=== PATIENT | female | born 1995 | race Two or more races ===

== ENCOUNTER 2024-02-10 08:57 | Observation (INO) | payer OTHER ==
--- NOTE | 2024-02-10 09:45 | DVH ---
Procedure: US BIOPHYSICAL PROFILE 02/10/2024 09:25 AM Indication: Term Comparison: None Technique: Sonogram of gravid uterus utilizing grayscale and color techniques. FINDINGS: Single living intrauterine gestation. Presentation: Cephalic Placenta: Anterior, no evidence of previa or abruption heart rate: 152 bpm NELSON: 18.7 cm, DVP: 7.3 cm Maternal cervix: Not visualized Biophysical Profile: breathing score: 2 movement score: 2 tone: 2 Quantitative NELSON score: 2 Total score: 8/8 IMPRESSION: 1. Single living as above. 2. Biophysical profile score: 8/8.
--- NOTE | 2024-02-10 10:30 | DVHDS2 ---
Physician Discharge Progress N Final Diagnosis: testing for term Operations or Procedures: Operations or Procedures 28yo IUP@40.0wks VSS UA wnl NST reactive (reviewed by 2 RNs) BPP wnl FKC/labor precautions reviewed Condition on Discharge: Stable Disposition: Home Discharge Instructions: Diet: Regular Activity: No Restrictions, As Tolerated Medications: PNV Follow Up Care: Specialist: f/u in 2 days Discharge Statement: "Patient was advised to return to the ER or call 911 if any headaches, dizziness, shortness of breath, chest pain, abdominal pain, bleeding, fevers, or worsening of medical condition. Patient was counseled about treatment plan, medications, possible side effects, patientverbalized understanding. All questions were answered to the best of my ability. This discharge took greater then 30 minutes in planning, reviewing documentation, counseling the patient, and discussing with other team members." MANUELA ZEE CNM Feb 10, 2024 10:30
== END 2024-02-10 10:23 | disposition home or self-care (01) ==
LOC: LDRP 08:57 → UNDOADMOB 08:57 → LDRP 09:11 → UNDODISOB 10:23
PROVIDERS: ADMIT Obstetrics & Gynecology; ATTEND Obstetrics & Gynecology
DX: O36.8330 Maternal care for abnormalities of the fetal heart rate or rhythm, third trimester, not applicable or unspecified (principal); Z3A.40 40 weeks gestation of pregnancy; Z79.899 Other long term (current) drug therapy; Z98.890 Other specified postprocedural states
CPT/HCPCS: 59025; 76818; 81002; 94760; G0378

== ENCOUNTER 2024-02-12 09:58 | Observation (INO) | payer OTHER ==
[~2024-02-12] VITALS: Ht 157.5 cm; Wt 66.7 kg
--- NOTE | 2024-02-12 11:16 | DVH ---
BIOPHYSICAL PROFILE HISTORY: Post Dates TECHNIQUE: Multiple transabdominal real-time grayscale sonographic images through the gravid uterus of the fetus with duplex Doppler color flow and M-mode spectral analysis FINDINGS: BIOPHYSICAL PROFILE: breathing score: 2 movement score: 2 tone score: 2 Quantitative NELSON score: 2 (NELSON: 17.7 Cm. MVP 7.5 cm ) Total score: 8/8 Single live fetus in cephalic presentation. heart rate 144 beats per minute. Anterior placenta without previa or abruption IMPRESSION: 1. Biophysical profile score: 8/8 HS:Y
== END 2024-02-12 11:32 | disposition home or self-care (01) ==
LOC: LDRP 09:58 → UNDOADMOB 09:58 → LDRP 10:03
PROVIDERS: ADMIT Obstetrics & Gynecology; ATTEND Obstetrics & Gynecology
DX: O48.0 Post-term pregnancy (principal); Z3A.40 40 weeks gestation of pregnancy; Z79.899 Other long term (current) drug therapy
CPT/HCPCS: 59025; 76818; 81002; 94760; G0378

== ENCOUNTER 2024-02-13 06:30 | Inpatient (IN) | payer OTHER ==
[2024-02-12 11:51] LABS: Basophils # (auto) 0 10 ^3/uL (0-0.2); Basophils % (auto) 0.5 % (0.0-2.0); Eosinophils # (auto) 0 10 ^3/uL (0-0.8); Eosinophils % (auto) 0.5 % (0.0-7.0); Hematocrit 37.6 % (36.0-46.0); Hemoglobin 12.4 g/dL (12.2-16.2); Lymphocytes # (auto) 1.4 10 ^3/uL (0.4-5.4); Mean Corpuscular Hemoglobin 27.2 pg (28.0-32.0); Mean Corpuscular Volume 82.5 fL (80.0-100.0); Monocytes # (auto) 0.7 10 ^3/uL (0-1.3); Monocytes % (auto) 8.4 % (0.0-12.0); Neutrophils # (auto) 5.7 10 ^3/uL (1.6-8.6); Neutrophils % (auto) 72.6 % (37.0-80.0); Platelet Count (auto) 166 10^3/uL (140-450); Red Blood Cells 4.55 10^6/uL (4.0-5.20); Red Cell Distribution Width 14.5 % (11.8-14.3); White Blood Cell 7.9 10^3/uL (4.4-10.8)
[2024-02-12 12:05] LABS: Alanine Aminotransferase 22 U/L (7-40); Albumin 3.7 g/dL (3.2-4.8); Alkaline Phosphatase 193 U/L (46-116); Anion Gap 7 (5-15); Aspartate Aminotransferase 25 U/L (13-40); BUN/Creatinine Ratio 12.9 (10.0-20.0); Blood Urea Nitrogen 9 mg/dL (9-23); Calcium 9.8 mg/dL (8.7-10.4); Carbon Dioxide 24 mmol/L (20-31); Chloride 106 mmol/L (98-107); Glucose 57 mg/dL (74-106); Sodium 137 mmol/L (136-145)
[2024-02-12 12:06] LABS: Bilirubin, Total 0.6 mg/dL (0.2-1.0); INR 0.93 (0.9-1.15); Partial Thromboplastin Time 27.1 SEC (24.5-34.5); Prothrombin Time 9.9 sec (9.3-11.8); Total Protein 6.1 g/dL (5.7-8.2)
[2024-02-12 12:08] LABS: Hepatitis B Surface Antibody Negative (Negative)
[2024-02-12 12:42] LABS: Hepatitis C Antibody Negative (Negative)
[~2024-02-13] VITALS: Ht 157.5 cm; Wt 66.7 kg
[2024-02-13] VITALS (15 sets, daily range): BP systolic 91–120; BP diastolic 55–68; PULSE 54–76; RESP 14–20; TEMP 97.4–98.2; O2SAT 95–100
[2024-02-13 07:00] LABS: Urine Bacteria None Seen /hpf (None Seen)
[2024-02-13 07:06] LABS: RPR Non Reactive (Non Reactive)
[2024-02-13 07:15] LABS: Urine Blood Negative /uL (Negative); Urine Clarity Clear (Clear); Urine Color Light-Yellow (Yellow); Urine Protein, UAD Negative (Negative); Urine Specific Gravity 1.015 (1.001-1.035); Urine Urobilinogen Normal (Negative); Urine WBC 1 /hpf (0 - 5); Urine pH 6.5 (5.0-9.0)
[2024-02-13 07:25] LABS: Amphetamine Screen, Urine Neg (NEGATIVE); Benzodiazephine Screen, Urine Neg (NEGATIVE)
[2024-02-13 07:26] LABS: Barbiturate Scree,Urine Neg (NEGATIVE); Cannabinoid Screen, Urine Neg (NEGATIVE); Cocaine Screen, Urine Neg (NEGATIVE); Opiate Scree,Urine Neg (NEGATIVE); Phencyclidine Screen, Urine Neg (NEGATIVE)
--- NOTE | 2024-02-13 07:34 | DVHHP2 ---
OB CC & HPI Date Date of Admission: Feb 13, 2024 Patient Identification: : 1 Para: 0 EDC: Feb 10, 2024 EGA: 40.3 Chief Complaints: Reason for admission: section History of Present Complaints 28y G1Po Term IUP scheduled for 1' C/Section due to CPD (cephalopelvic disproportion) Patient has a narrow pelvis and declined trial of labor/ induction. Clinical EFW approximately 8 pounds. course has been uncomplicated. Past Medical History Cardiac: No pertinent Hx Pulmonary: No pertinent Hx Central Nervous System: No pertinent Hx GI: No pertinent Hx Hemotology/Oncology: No pertinent Hx Hepatobiliary: No pertinent Hx Psychiatric: No pertinent Hx Musculoskeletal: No pertinent Hx Rheumotologic: No pertinent Hx Infectious Disease: No peritnent Hx ENT: No pertinent Hx Renal/: No pertinent Hx Endocrine: No pertinent Hx Dermatology: No pertinent Hx Past Surgical History: No pertinent Hx OB History OB History Care: Good Care Ultrasounds: Normal mid trimester US Obstetrical Complications: None Allergies: Coded Allergies: NO KNOWN ALLERGIES (Unverified , 02/12/24) Home Meds No Active Prescriptions or Reported Meds Family & Social History Family/Social History Rubella: immune RPR/VDRL: Negative GBS Status: Negative HBsAG: Negative Review of Systems Constitutional: No symptom reported Ears, Nose, & Throat: No symptom reported Eyes: No symptom reported Pulmonary/Respiratory: No symptom reported Cardiovascular: No symptom reported Gastrointestinal: No symptom reported Genitourinary: No symptom reported Musculoskeletal: No symptom reported Skin: No symptom reported Psychiatric: No symptom reported Endocrine: No symptom reported Hemotologic/Lymphatic: No symptom reported OB Admission Exam Physical Exam HEENT: NCAT Heart: Rhythm Normal Lungs: Clear Abdomen: Non tender Extremities: Normal Reflexes: Normal Cervical Dilatation: None Effacement: 0% Station: Ballotable Membranes: Intact Heart Rate: 130's Accelerations: Accelerations Present Decelerations: No Decelerations Short Term Variability: Present [facility] Variability: Average (6-25) Contractions on Admission: None OB Plan Plan Admitting Diagnosis: Term IUP 40.3 weeks, Cephalopelvic disproportion (CPD) PRIMARY Plan: Section Other Plan: R/B/A and informed consent obtained for 1' C/Section All questions answered STACI MONDRAGON DO Feb 13, 2024 07:34
[2024-02-13] MEDS: LACTATED RINGER'S 1,000 ML IV ONE (07:59)
[2024-02-13] MEDS: LACTATED RINGER'S 1,000 ML IV SCH (07:59)
[2024-02-13] MEDS ORDERED: ePHEDrine SULFATE 50 MG/ML AMP IV PRN (08:45)
[2024-02-13] MEDS ORDERED: HYDROmorphone HCL 2 MG/ML VL/or syr IV PRN (08:45)
[2024-02-13] MEDS ORDERED: MORPHINE SULF PF 5 MG/10 ML VIAL ONE (08:48)
[2024-02-13] MEDS ORDERED: fentaNYL CITRATE 100 MCG/2 ML VL ONE (08:48)
[2024-02-13] MEDS ORDERED: ROCURONIUM 10MG/ML 10ML VIAL IV ONE (08:55)
[2024-02-13] MEDS: ceFAZolin 2 GM/D5W50ml 50 ML IV ONE (09:11)
[2024-02-13] MEDS ORDERED: ONDANSETRON HCL 4 MG/2 ML VIAL ONE (09:36)
[2024-02-13] MEDS ORDERED: GLYCOPYRROLATE 0.2 MG/ML 1ML VIAL ONE (10:31)
--- NOTE | 2024-02-13 10:47 | DVHOP ---
DATE OF SURGERY: 02/13/2024 PREOPERATIVE DIAGNOSES: * Term intrauterine 40 weeks and 3 days. * Cephalopelvic disproportion. FINAL DIAGNOSES: * Term intrauterine 40 weeks and 3 days. * Cephalopelvic disproportion. * Face presentation. PROCEDURE PERFORMED: Primary low transverse section via Pfannenstiel skin incision. SURGEON: Trenton Mckoy DO SYSTEM SUPPORT DEVELOPER: electrophysiology technician. TYPE OF ANESTHESIA: Spinal. ANESTHESIOLOGIST: Ronnie Amado MD DESCRIPTION OF FINDINGS: Delivery of a liveborn male , face presentation mentum anterior. Fetus with scores of 8 and 9. Fetus with apparent micrognathia and elongated oval shape head. Clear amniotic fluid. Normal uterus. Normal bilateral fallopian tubes, ovaries, and placenta. TECHNICAL PROCEDURE: After informed consent was obtained, the patient was taken to the operating room where her spinal anesthesia was found to be adequate. She was placed in the supine position with a slight leftward tilt. She was sterilely prepped and draped in the usual sterile fashion. A Pfannenstiel skin incision was made with the scalpel. The incision was carried down sharply to the underlying layer of fascia and peritoneum. The peritoneal incision was extended superiorly and inferiorly with good visualization of the bladder. The Adam O retractor was placed into the incision. The lower uterine segment was incised with a second scalpel in a low transverse fashion. The incision stretched laterally using digital technique. The amniotic fluid membranes were ruptured. The fluid was clear. The baby was then delivered atraumatically. After delivery of the , the nose and mouth were suctioned. The cord was clamped and cut after 60 seconds. The baby was then handed off to waiting pediatric team. Cord blood was obtained. The placenta was spontaneously delivered. The uterus was exteriorized and cleared of all clots and debris using moist laparotomy sponges. The uterine incision was repaired with #1 Stratafix suture in continuous running fashion. Good hemostasis was obtained. Next, the abdomen and pericolic gutters were cleared of all clots and debris. The abdomen was irrigated with sterile water. Hemostasis was confirmed. The instruments were removed from the patient's abdomen. I then proceeded to close the rectus fascia using #1 Stratafix in continuous running fashion with good tissue approximation. The subcutaneous tissue was closed with 2-0 plain gut in continuous running fashion and the skin closed with a 2-0 Monocryl in subcuticular fashion. The Perineo skin dressing was then placed over the incision followed by a sterile gauze dressing. The patient tolerated the procedure well. COUNTS: Sponge, lap, and needle counts were correct x4. INTRAOPERATIVE COMPLICATIONS: None. ESTIMATED BLOOD LOSS: 600 mL. POSTOPERATIVE CONDITION: Stable. SPECIMENS: Cord blood and placenta. MEDICATIONS: The patient received 2 grams of Ancef prior to skin incision. DO ALIYAH Griggs TID: [id number] RECEIPT: [id number] MTDD
[2024-02-13] MEDS: ceFAZolin 1GM/50ML 50 ML IV SCH (17:26)
[2024-02-13] MEDS: ONDANSETRON HCL 4 MG/2 ML VIAL IV ONE (21:31)
[2024-02-14] VITALS (12 sets, daily range): BP systolic 92–106; BP diastolic 52–77; PULSE 56–82; RESP 16–18; TEMP 97.5–98.4; O2SAT 96–100
[2024-02-14] MEDS: ACETAMINOPHEN IV 1000 MG/100ML (10MG/ML) IV PRN (00:15)
[2024-02-14] MEDS: KETOROLAC TROMETH 30 MG/ML 1ML VIAL IV PRN (05:02)
[2024-02-14 06:15] LABS: Basophils # (auto) 0 10 ^3/uL (0-0.2); Basophils % (auto) 0.1 % (0.0-2.0); Eosinophils # (auto) 0 10 ^3/uL (0-0.8); Eosinophils % (auto) 0.1 % (0.0-7.0); Hematocrit 31.2 % (36.0-46.0); Hemoglobin 10.3 g/dL (12.2-16.2); Lymphocytes # (auto) 1.7 10 ^3/uL (0.4-5.4); Lymphocytes % (auto) 12.1 % (10.0-50.0); Mean Corpuscular Hemoglobin 27.3 pg (28.0-32.0); Mean Corpuscular Hgb Conc. 33.2 g/dL (32.0-36.0); Mean Corpuscular Volume 82.3 fL (80.0-100.0); Monocytes # (auto) 1.1 10 ^3/uL (0-1.3); Monocytes % (auto) 7.6 % (0.0-12.0); Neutrophils # (auto) 11.4 10 ^3/uL (1.6-8.6); Neutrophils % (auto) 80.1 % (37.0-80.0); Platelet Count (auto) 159 10^3/uL (140-450); Red Blood Cells 3.79 10^6/uL (4.0-5.20); Red Cell Distribution Width 14.8 % (11.8-14.3); White Blood Cell 14.2 10^3/uL (4.4-10.8)
--- NOTE | 2024-02-14 07:00 | DVHPN2 ---
Progress Note Date Seen: Feb 14, 2024 Subjective POD#1 s/p 1' C/S for CPD Doing well. Pain controlled. Lochia mild vital signs Vital Sign Date Time Temp Pulse Resp B/P (MAP) Pulse Ox O2 Delivery O2 Flow Rate FiO2 02/14/24 05:00 63 16 94/58 (70) 97 02/14/24 03:00 98.4 98.4 02/13/24 19:00 Room Air 02/13/24 10:55 0.0 02/13/24 10:33 100 Total Intake and Output 02/13/24 02/13/24 02/14/24 15:00 23:00 07:00 Intake Total 450 ml 750 ml Output Total 2400 ml 1200 ml Balance -1950 ml -450 ml medications Current Medications Medications Dose Ordered Sig/Vernon Route Start Time Stop Time Status Last Admin Dose Admin Lactated Ringer's 1,000 ml @ 125 mls/hr Q8H IV 02/13/24 07:30 02/13/24 07:59 125 MLS/HR Cefazolin Sodium 50 ml @ 100 mls/hr Q8H IV 02/13/24 17:30 02/14/24 09:59 02/14/24 01:18 100 MLS/HR Ketorolac Tromethamine 30 mg Q6HPRN PRN IV 02/13/24 11:30 02/18/24 11:29 02/14/24 05:02 30 MG laboratory and microbiology Laboratory Tests 02/14/24 05:45 02/12/24 10:25 Test 02/12/24 10:25 Range/Units Serum Glucose 57 L 74-106 mg/dL Objective O: AFVSS Chest: heart and lung sounds normal. Abd soft, non-tender, fundus firm, BS, no rebound or guarding, Incision - dressing and incision clean, dry, intact Ext Neg Homans, Non-tender, edema Lochia - minimal Labs Reviewed Assessment/Plan 28y s/p 1' C/S doing well Precipitous drop in H/H, related to acute blood loss anemia (surgery) (stable) Plan: Continue current care, pain control Advance orders, regular diet Ambulate Plan discussed with: Patient JOSE RAFAELSTACI TAY Feb 14, 2024 07:00
[2024-02-14] MEDS ORDERED: IBUP-1456 PO (07:02)
[2024-02-14] MEDS ORDERED: HYDR-4902 PO (07:02)
[2024-02-14] MEDS: IBUPROFEN 800 MG TAB PO PRN (08:09)
[2024-02-14] MEDS: DOCUSATE CALCIUM 240 MG CAP PO SCH (10:01)
[2024-02-14] MEDS: DOCUSATE SOD 100 MG CAP PO SCH (10:02)
[2024-02-14] MEDS: SIMETHICONE 80 MG CHEWABLE TABLET PO SCH (12:09)
[2024-02-14] MEDS: HYDROcodone-ACET 5/325MG TAB PO PRN (12:18)
[2024-02-15] MEDS: BISACODYL 10 MG RECT SUPP PR PRN (01:01)
[2024-02-15 02:50] VITALS: BP 108/71; PULSE 62; RESP 18; TEMP 97.8; O2SAT 100
[2024-02-15 07:00] VITALS: BP 111/70; PULSE 95; RESP 16; TEMP 97.7; O2SAT 97
--- NOTE | 2024-02-15 09:20 | DVHPN2 ---
Chief Complaints Patient reports: No new complaints, Feels better Nursing reports: No new complaints, No chest pain, No dizziness, No cough (Patient ) Objective Vitals Vital Signs Date Time Temp Pulse Resp B/P (MAP) Pulse Ox O2 Delivery O2 Flow Rate FiO2 02/15/24 07:00 Room Air 0.0 02/15/24 07:00 97.7 95 16 111/70 (84) 97 97.7 02/13/24 10:33 100 Medications Current Medications Medications (Trade) Dose Ordered Sig/Vernon Route PRN Reason Start Time Stop Time Status Last Admin Dimethicone (Mylicon Tab) 80 mg QID PO 02/14/24 12:00 02/15/24 05:48 Docusate Calcium (Surfak Capsule) 240 mg DAILY PO 02/14/24 10:00 02/14/24 10:01 Docusate Sodium (Colace Capsule) 100 mg Q12HR PO 02/14/24 10:00 02/14/24 22:24 General: Normal Lungs: Normal Cardiovascular: Normal Abdominal: Normal Musculoskeletal: Normal Extremities: Normal Skin: Normal Neurological: Normal Studies Laboratory Tests 02/14/24 05:45 02/12/24 10:25 Test 02/12/24 10:25 Range/Units Serum Glucose 57 L 74-106 mg/dL Ass/Plan Assessment Post section stable for discharge home Plan See DC summary See DC orders JERRY DAMON DO Feb 15, 2024 09:20
--- NOTE | 2024-02-15 09:24 | DVHDS2 ---
Obstetrics Discharge Summary Obstetrics Discharge Summary Date of Admission: Feb 13, 2024 Date of Discharge: Feb 16, 2024 Reason For Admission: Section (Primary) Procedures: NST Intrapartum Procedures: (Low Cervical Transverse) Procedures: None Operative Complicat: None Discharge Diagnosis: Term -Delivered Discharge Information: Activity (pelvic ), Diet (Routine), Medications (DC Rx sent to pharmacy), Instructions (Routine), Discharge to (Home), Discarge date (02/16/2024) JERRY DAMON DO Feb 15, 2024 09:24
[2024-02-15 11:00] VITALS: BP 118/72; PULSE 90; RESP 20; TEMP 97.4; O2SAT 97
[2024-02-15 18:00] VITALS: BP 111/69; PULSE 83; RESP 18; TEMP 97.6; O2SAT 97
[2024-02-15 19:00] VITALS: BP 111/69; PULSE 83; RESP 18; TEMP 97.6; O2SAT 97
[2024-02-15 23:00] VITALS: BP 98/70; PULSE 61; RESP 18; TEMP 97.4
[2024-02-16 03:00] VITALS: BP 97/67; PULSE 86; RESP 16; TEMP 97.9; O2SAT 97
--- NOTE | 2024-02-16 05:33 | DVHPN2 ---
Chief Complaints Patient reports: No new complaints, Feels better Nursing reports: No new complaints, No chest pain, No dizziness, No cough (Patient ) Objective Vitals Vital Signs Date Time Temp Pulse Resp B/P (MAP) Pulse Ox O2 Delivery O2 Flow Rate FiO2 02/16/24 03:00 97.9 86 16 97/67 (77) 97 97.9 02/15/24 19:00 Room Air 02/15/24 07:00 0.0 General: Normal Lungs: Normal Cardiovascular: Normal Abdominal: Normal Musculoskeletal: Normal Extremities: Normal Skin: Normal Neurological: Normal Studies Laboratory Tests 02/14/24 05:45 02/12/24 10:25 Test 02/12/24 10:25 Range/Units Serum Glucose 57 L 74-106 mg/dL Ass/Plan Assessment Post section stable for discharge home Plan JERRY Landers DC, DC DO Feb 16, 2024 05:33
[2024-02-16 07:00] VITALS: BP 115/69; PULSE 96; RESP 20; TEMP 97.4; O2SAT 97
[2024-02-16 11:00] VITALS: BP 111/73; PULSE 103; RESP 20; TEMP 97.8; O2SAT 99
[2024-02-16 11:07] LABS: Treponema Pallidum Ab LC Non Reactive (Non Reactive)
[2024-02-16] MEDS: HYDROcodone-ACET 5/325MG TAB PO PRN (11:44)
[2024-02-16] MEDS: MEASLES, MUMPS & RUBELLA VAC(MMRII) 0.5ML SC ONE (11:48)
[2024-02-16 12:30] VITALS: BP 111/73; PULSE 103; RESP 20; TEMP 97.8; O2SAT 99
== END 2024-02-16 12:30 | disposition home or self-care (01) | DRG 787 ==
LOC: LDRP 06:30
PROVIDERS: ADMIT Obstetrics & Gynecology; ATTEND Obstetrics & Gynecology
PROC: 10D00Z1 Extraction of Products of Conception, Low, Open Approach (ICD-10-PCS; principal; 2024-02-13 09:19)
DX: O48.0 Post-term pregnancy (principal); D62 Acute posthemorrhagic anemia; O33.9 Maternal care for disproportion, unspecified; O32.3XX0 Maternal care for face, brow and chin presentation, not applicable or unspecified; Z37.0 Single live birth; Z3A.40 40 weeks gestation of pregnancy; O99.02 Anemia complicating childbirth
CPT/HCPCS: 36415; 59025; 80053; 80307; 81001; 81002; 85025; 85610; 85730; 86592; 86706; 86780; 86803; 86850; 86900; 86901; 94760; 94762; 96360; 96361; 96365; 96366; G0378; J0131; J1885; J2405